=== PATIENT | male | born 1945 | race Caucasian/White ===

== ENCOUNTER 2022-06-26 14:45 | Outpatient (CLI) | payer OTHER, MEDICAID, SELFPAY ==
[2022-06-26 21:59] LABS: Albumin* 4.3 g/dL (3.3-5.0); Chloride* 103 mmol/L (96-114); Sodium* 139 mmol/L (135-149)
[2022-06-26 22:00] LABS: Potassium* 4.6 mmol/L (3.6-5.1)
[2022-06-26 22:02] LABS: Alanine Aminotransferase* 19 U/L (4-50); Alkaline Phosphatase* 80 U/L (40-150); Aspartate Amino Transferase* 28 U/L (12-35); Bilirubin Total* 0.4 mg/dL (0.1-1.5); Blood Urea Nitrogen* 20 mg/dL (7-30); Carbon Dioxide* 22 mmol/L (20-32); Creatinine* 1.1 mg/dL (0.5-1.5); Estimated Glomerular Filt Rate 70 ml/min; Glucose* 134 mg/dL (60-115); Total Protein* 7.3 g/dL (6.0-8.3)
[2022-06-26 22:03] LABS: Calcium* 8.8 mg/dL (8.4-10.6)
[2022-06-26 22:11] LABS: NT Pro B Type NatriureticPept* 3000 PG/mL (0-450)
== END 2022-06-26 14:46 | disposition home or self-care (01) ==
PROVIDERS: PCP Family Medicine; Visit Provider Family Medicine
DX: Z01.818 Encounter for other preprocedural examination (principal); E11.69 Type 2 diabetes mellitus with other specified complication; E66.9 Obesity, unspecified; I48.91 Unspecified atrial fibrillation; M54.9 Dorsalgia, unspecified
CPT/HCPCS: 80053; 83880

== ENCOUNTER 2022-07-23 10:51 | Outpatient (CLI) | payer OTHER, MEDICAID, SELFPAY ==
[2022-07-23 21:51] LABS: Chloride* 103 mmol/L (96-114)
[2022-07-23 21:52] LABS: Albumin* 4.6 g/dL (3.3-5.0); Sodium* 135 mmol/L (135-149)
[2022-07-23 21:54] LABS: Carbon Dioxide* 23 mmol/L (20-32); Estimated Glomerular Filt Rate 78 ml/min
[2022-07-23 21:55] LABS: Alanine Aminotransferase* 29 U/L (4-50); Alkaline Phosphatase* 79 U/L (40-150); Aspartate Amino Transferase* 45 U/L (12-35); Bilirubin Total* 0.8 mg/dL (0.1-1.5); Blood Urea Nitrogen* 29 mg/dL (7-30); Glucose* 131 mg/dL (60-115); Total Protein* 7.6 g/dL (6.0-8.3)
[2022-07-24 02:08] LABS: Digoxin* 1.1 ng/mL (0.8-2.0)
== END 2022-07-23 10:52 | disposition home or self-care (01) ==
PROVIDERS: PCP Family Medicine; Visit Provider Family Medicine
DX: G62.9 Polyneuropathy, unspecified (principal); I10 Essential (primary) hypertension; I48.91 Unspecified atrial fibrillation
CPT/HCPCS: 80053; 80162